=== PATIENT | female | born 1975 | race African-American/Black ===

== ENCOUNTER 2022-08-23 19:18 | Emergency (ER) | payer OTHER, SELFPAY ==
--- NOTE | ~2022-08-23 | XR_ITS ---
EXAMINATION: XR chest 2V 08/23/2022 19:45 INDICATION: Chest pain PROCEDURE: 2 view chest COMPARISON: No prior studies for comparison. FINDINGS: The lungs are clear. The cardiomediastinal silhouette is within normal limits. There are no pleural effusions. There is no pneumothorax suspected. IMPRESSION: 1: NO ACUTE CARDIOPULMONARY DISEASE. Reviewed, dictated and finalized at location A.
[2022-08-23 19:20] VITALS: PULSE 82; RESP 18; TEMP 36.8; O2SAT 100
--- NOTE | 2022-08-23 19:29 | ECG_ITS ---
Measurements Intervals [place] Rate: 74 P: 52 TX: 165 QRS: -28 QRSD: 86 T: 0 QT: 367 QTc: 408 Interpretive Statements SINUS RHYTHM WITH IRREGULAR RHYTHM, CONSIDER SINUS PAUSE OR AV BLOCK ATRIAL PREMATURE COMPLEX LOW QRS VOLTAGE IN PRECORDIAL LEADS POOR R WAVE PROGRESSION, ANTERIOR LEADS BORDERLINE T WAVE ABNORMALITY- ANTEROLAT/INF LEADS BASELINE ARTIFACT- I, II, AVR, AVL, AVF ABNORMAL ECG NO PREVIOUS ECG AVAILABLE FOR COMPARISON Electronically Signed On 08-23-2022 21:37:17 CDT by Arnold Newberry D.O.
[2022-08-23 20:52] LABS: Basophils Percent Auto 0.7 % (0.2-1.2); Eosinophils Absolute Auto 0.1 K/mm3 (0-0.3); Eosinophils Percent Auto 1.2 % (0-4.4); Hematocrit 37.1 % (37.0-47.0); Immature Granulocyte Absolute 0.02 K/mm3 (0.00-0.031); Immature Granulocyte Percent A 0.3 % (0-0.5); Lymphocytes Absolute Auto 1.78 K/mm3 (0.9-3.2); Lymphocytes Percent Auto 29.9 % (18.3-44.2); Mean Corpuscular HGB Conc 29.6 g/dl (32-36); Mean Corpuscular Hemoglobin 23.3 pg (26-34); Mean Corpuscular Volume 78.4 fl (80-100); Monocytes Absolute Auto 0.5 K/mm3 (0.1-0.6); Monocytes Percent Auto 7.7 % (2.6-8.5); Neutrophils Absolute Auto 3.6 K/mm3 (1.3-6.7); Neutrophils Percent Auto 60.2 % (45.5-73.1); Platelet Count Result 358 k/mm3 (150-375); Red Blood Count 4.73 M/mm3 (4.2-5.4)
[2022-08-23 21:02] LABS: Hypochromasia 1+ (NORMAL); Ovalocytes 1+ (NORMAL); Platelet Estimate Adequate (Adequate); Schistocytes None Seen (NORMAL)
[2022-08-23 21:07] LABS: INR 1.1; Prothrombin Time 13.8 Seconds (11.1-14.7)
[2022-08-23 21:08] LABS: Alanine Aminotransferase 13 U/L (6-35); Albumin Level 3.9 g/dL (3.5-5.1); Alkaline Phosphatase 87 U/L (38-126); Anion Gap 12 mmol/L (8-16); Aspartate Amino Transferase 20 U/L (14-36); Bilirubin,Total 0.3 mg/dL (0.2-1.3); Blood Urea Nitrogen 10 mg/dL (7-17); Calcium 8.5 mg/dL (8.4-10.2); Carbon Dioxide 22 mmol/L (22-30); Chloride 104 mmol/L (98-107); Estimated CRCL calculation 101 ml/min; Estimated Glomerular Filt Rate > 60; Glucose 101 mg/dL (65-110); Lipase 63 U/L (23-300); Partial Thromboplastin Time 25.2 SECONDS (22.3-36.8); Potassium 3.8 mmol/L (3.4-5.0); Sodium 138 mmol/L (137-145)
[2022-08-23 21:30] LABS: Troponin I < 0.012 ng/mL (0.000-0.034)
[2022-08-23] MEDS: ASPIRIN 81 MG CHEWABLE TABLET 324 MG PO (22:54)
[2022-08-23 22:56] VITALS: PULSE 79
--- NOTE | 2022-08-23 23:19 | ED.CHESTPAIN ---
HPI - Chest Pain General Chief Complaint: Chest Pain Stated Complaint: right side CP Time Seen by Provider: 08/23/22 23:09 History of Present Illness HPI narrative: This patient presents with a feeling of some pain around her right rib/chest, she is unsure is from her breast/be evident, she did not tell nursing that she had a sensation of bilateral upper extremity tingling sometimes when she wears her bra but not anything currently. Related Data Allergies Allergy/AdvReac Type Severity Reaction Status Date / Time No Known Allergies Allergy Verified 08/23/22 22:53 Review of Systems Review of Systems: CONST: No fever. HEENT: No sore throat C/V: Right chest pain RESP: No dyspnea GI: No abdominal pain : No dysuria. M/S: No joint pain. SKIN: No rash. NEURO: [No headache or focal weakness]; does endorse occasional tingling in upper extremities bilaterally but not currently PSYCH: [No depression] Exam Narrative: EXAMINATION OF ORGAN SYSTEMS/BODY AREAS: Constitutional: Vital signs per nursing GENERAL:[No acute distress, non-toxic appearing.] HEAD: Normal with no signs of head trauma. EYES: EOMI, conjunctiva normal ENT: Hearing grossly intact LUNGS: Nonlabored breathing. No chest tenderness BREASTS: Nontender; small abrasion that is healing well on right breast HEART: [Regular rate and rhythm] ABD: [Soft], [nontender to palpation] EXT: Normal range of motion SKIN: Indents bilateral shoulders where bra straps dig in NEURO: [Alert and oriented x 3. No gross focal sensory or strength deficits.] PSYCH: Normal affect Course Vital Signs Vital signs: Vital Signs Temperature 98.3 F 08/23/22 19:20 Pulse Rate 82 08/23/22 19:20 Respiratory Rate 18 08/23/22 19:20 Pulse Oximetry 100 08/23/22 19:20 Oxygen Delivery Room Air 08/23/22 19:20 Temperature 98.3 F 08/23/22 19:20 Pulse Rate 69 08/24/22 00:01 Respiratory Rate 18 08/24/22 00:01 Blood Pressure 137/86 08/24/22 00:01 Pulse Oximetry 100 08/23/22 23:31 Oxygen Delivery Room Air 08/23/22 22:56 MDM - Chest Pain MDM Narrative Medical decision making narrative: ED COURSE AND MEDICAL DECISION MAKIN-year-old female presenting with right-sided chest pain. EKG done in triage negative for acute ischemic changes. Cardiac workup is initiated. EKG: Performed in triage and interpreted by me. Normal sinus rhythm. Rate [74]. Normal/left axis. RI normal. QRS duration normal. QTc normal. No ST segment elevation or depression to suggest acute ischemia. HEART score is 0 with no acute ischemic changes on EKG and negative troponin making ACS unlikely. Wells low risk with negative PERC making PE unlikely. Presentation not consistent with dissection or aneurysm without radiation of pain or pulse deficits. CXR negative for mediastinal widening. No abdominal pain or signs of sepsis that would be concerning for esophageal perforation or mediastinitis. No cardiomegaly or JVD to suggest pericardial effusion/tamponade. On repeat evaluation just prior to discharge, the patient is no acute distress. I had a long discussion with the patient and with shared decision making, she is comfortable with outpatient management. She was given clear return instructions by myself in person as well as on discharge paperwork. Procedures: Pulse oximetry interpretation - not hypoxic. EKG interpretation. Review of medical records. Lab Data Result diagrams: 08/23/22 20:44 08/23/22 20:44 Labs: Lab Results 08/23/22 08/23/22 08/23/22 Range/Units 20:44 20:44 20:44 WBC 6.0 (4.5-10.0) K/mm3 RBC 4.73 (4.2-5.4) M/mm3 Hgb 11.0 L (12.0-15.0) g/dL Hct 37.1 (37.0-47.0) % MCV 78.4 L (80-100) fl MCH 23.3 L (26-34) pg MCHC 29.6 L (32-36) g/dl RDW 18.0 H (11.5-14.5) % Plt Count 358 (150-375) k/mm3 MPV 9.0 (7.4-10.4) fl Immature Gran % (Auto) 0.3 (0-0.5) % Neut % (Auto) 60.2 (45.5-73.1) %
[2022-08-23 23:31] VITALS: BP 151/96; RESP 16; O2SAT 100
[2022-08-24 00:01] VITALS: BP 137/86; PULSE 69; RESP 18
[2022-08-24 00:02] LABS: Troponin I < 0.012 ng/mL (0.000-0.034)
== END 2022-08-24 00:17 | disposition home or self-care (01) ==
LOC: ANHED 23:30
PROVIDERS: Emergency Medicine; Emergency Provider Emergency Medicine
DX: R07.89 Other chest pain (principal)
CPT/HCPCS: 36415; 71046; 80053; 83690; 84484; 85025; 85610; 85730; 93005; 99284; A9270

== ENCOUNTER 2024-10-01 07:23 | Outpatient (CLI) | payer OTHER, SELFPAY ==
--- NOTE | ~2024-10-01 | MM_ITS ---
EXAMINATION: MM screening gabriela BI w anne HISTORY: Screening mammogram TECHNIQUE: Craniocaudal and mediolateral oblique 3-D tomosynthesis images were obtained and synthetic 2-D images were generated. CAD analysis was submitted and interpreted. COMPARISON: No prior mammogram is available for comparison at this institution. BREAST PARENCHYMAL COMPOSITION:Not Dense. The breasts are almost entirely fatty FINDINGS: No suspicious mass, calcification, or architectural distortion are identified in either jessica ast to suggest malignancy. There has been no suspicious interval change. IMPRESSION: No mammographic evidence of malignancy. Recommend routine screening mammography in one year. BI-RADS Category 1: Negative Reviewed, dictated and finalized at location .
== END 2024-10-01 07:24 | disposition home or self-care (01) ==
DX: Z12.31 Encounter for screening mammogram for malignant neoplasm of breast (principal)
CPT/HCPCS: 77063; 77067